=== PATIENT | female | born 1985 | race Caucasian/White ===

== ENCOUNTER 2018-01-06 12:17 | Emergency (ER) | payer SELFPAY ==
[2018-01-06] MEDS: ACETAMINOPHEN 325 MG TAB PO (13:17)
[2018-01-06] MEDS: ONDANSETRON (ODT) 4 MG TAB ODT (13:18)
== END 2018-01-06 14:06 | disposition home or self-care (01) ==
LOC: FTE 12:17
DX: S06.0X0A Concussion without loss of consciousness, initial encounter (principal); W11.XXXA Fall on and from ladder, initial encounter; Y92.9 Unspecified place or not applicable
CPT/HCPCS: 70450; 72125; 81025; 99285-25